=== PATIENT | female | born 1990 | race Caucasian/White ===

== ENCOUNTER 2017-10-14 04:52 | Observation (INO) | payer MEDICAID ==
[2017-10-14] MEDS ORDERED: ONDANSETRON 4 MG/2 ML VIAL IVP ONE (05:34)
[2017-10-14] MEDS ORDERED: D5W LR 500 ML IV ONE (05:45)
[2017-10-14 06:28] LABS: PLATELET COUNT 116 10^3/uL (150-400)
[2017-10-14] MEDS ORDERED: LR 1,000 ML IV ONE (06:30)
--- NOTE | 2017-10-14 13:43 | GHP ---
[f rep st] HISTORY AND PHYSICAL DATE OF ADMISSION: 10/14/2017 ADMITTING DIAGNOSES: 1. Intrauterine at 31 weeks and 6 days. 2. Nausea and vomiting in . HISTORY OF PRESENT ILLNESS: Patient is a 27-year-old 1, para 0, at 31 and 6 weeks with estimated due date 12/10/2017, by LMP 03/05/2017, consistent with a 13-week ultrasound. The patient presented to Labor and Delivery early this morning with complaints of nausea, vomiting, and 1 episode of diarrhea. Patient states has the same symptoms, questions food poisoning. She is unable to keep any food down, and has vomited more than 5 times. Patient states some abdominal cramping, but denies any pain. States there is good movement. Denies any leakage of fluid or vaginal bleeding. Patient denies any fevers or chills. The patient has good care at [facility], and presented at 13 weeks. Patient is Rh negative and did receive RhoGAM 2016. Patient developed mild anemia of . On 20-week ultrasound, there was estimated weight at 12th percentile, and pt needs a follow-up growth at 32 weeks. OB HISTORY: Patient is nulliparous. GYNECOLOGIC HISTORY: Age of menarche 13. Cycles every 28 days for 3-5 days. LMP 03/05/2017. test 04/20/2017. Patient has a history of abnormal Pap smear in 2013. Repeat was normal. No colposcopy or treatment done. Patient has history of OCP use in 2011 to 2012. The patient denies any exposure to sexually transmitted diseases. HOME MEDICATIONS: [id number] vitamin, vitamin B6. ALLERGIES: No known drug allergies. PAST MEDICAL HISTORY: History of cystitis, migraine headaches with aura. SURGICAL HISTORY: Fractured left wrist. FAMILY HISTORY: Unremarkable. SOCIAL HISTORY: Patient is not . She works for a private business. She lives with her partner. She denies any alcohol, tobacco, or illicit drug use. REVIEW OF SYSTEMS: 10-point review of systems negative. Pertinent positives noted in HPI. LABS: A negative. Antibody negative. RPR nonreactive. Rubella immune. Hepatitis B surface antigen negative, HIV negative. Standard panel negative. Urine culture negative. Pap test with ASCUS, negative high-risk HPV. screen negative. Rh antibody negative. RhoGAM given 2016. PHYSICAL EXAMINATION: VITAL SIGNS: On admission, vital signs are stable. GENERAL: The patient is a well-nourished well-developed female, alert and oriented x3. Not feeling well secondary to nausea and vomiting. CARDIOVASCULAR : Regular rate and rhythm. LUNGS: Clear to auscultation bilaterally. ABDOMEN : Gravid, soft, nontender, nondistended. PELVIC: Deferred. EXTREMITIES: Normal to inspection, without calf tenderness or edema. NST- Cat I tracing with +accels, no decels, mod variability ASSESSMENT: Patient is a 27-year-old 1, para 0, at 31 and 6/7 weeks, who presents with nausea, vomiting in , likely gastroenteritis. PLAN: 1. Admit to Labor and Delivery for observation. 2. IV fluids. 3. Antiemetics as needed. 4. Patient has tolerated both breakfast and lunch, without vomiting. She states she is feeling better. Her last episode of diarrhea was last night at 10 :30 pm. Last episode of vomiting early this morning around 6 a.m. 5. Patient is stable for discharge. I recommend a bland diet, small frequent meals. Prescription given for Zofran 4 mg ODT. Stay well hydrated. 6. labor precautions given. Patient is to call our office and schedule OB appointment in 1 week. /[id number]/MODL MTDD
== END 2017-10-14 13:30 | disposition home or self-care (01) ==
LOC: FLD 04:52
PROVIDERS: ADMIT Obstetrics & Gynecology; ATTEND Obstetrics & Gynecology
DX: O21.9 Vomiting of pregnancy, unspecified (principal); Z3A.13 13 weeks gestation of pregnancy
CPT/HCPCS: 59025; G0378; J2405

== ENCOUNTER 2017-11-19 10:30 | Inpatient (IN) | payer MEDICAID ==
[2017-11-19] MEDS ORDERED: OXYTOCIN 20 UNIT in LR 1,000 ML IV PRN (12:02)
[2017-11-19] MEDS ORDERED: LR 1,000 ML IV PRN (12:02)
[2017-11-19] MEDS ORDERED: LR 500 ML IV PRN (12:02)
[2017-11-19] MEDS ORDERED: MISOPROSTOL 200 MCG TAB PR PRN (12:02)
[2017-11-19] MEDS ORDERED: OLIVE OIL 118 ML BTL MISC PRN (12:02)
[2017-11-19] MEDS ORDERED: TERBUTALINE SULFATE 1 MG/ML VIAL IV PRN (12:02)
[2017-11-19] MEDS ORDERED: EPSOM SALT 454 GM TP PRN (12:02)
--- NOTE | 2017-11-19 12:02 | PDGENHP ---
History and Physical History and Physical: HPI: Patient is a 27 yo with IUP@ 37wks by with that presents to L&D for IOL 2/2 IUGR (3rd%). She denies any contractions, LOF, VB. She reports +FM. She is nervous about induction, but understands the reason and agrees with POC. EDC: 12/10/17 which is based on LMP:03/05/17 which is known and consistent with Ultrasound at 13 weeks. Her is complicated by: h/o migraines, rh negative, IUGR (3rd%) dx'd Review of Systems: Constitutional: Denies any fever, chills, or fatigue HEENT: denies any visual changes, difficulty swallowing, hearing loss Cardiovascular: Denies any chest pain, palpitations, leg swelling Respiratory: denies any cough, wheezing, or shortness of breathe GI: Denies any nausea, vomiting, diarrhea, constipation : denies any dysuria, urgency, frequency, vaginal bleeding Musculoskeletal: denies any muscle or bone pain Skin: denies any rashes Neuro: denies any headache, seizures, lightheadedness, dizziness, or loss of consciousness Psychiatric: denies any depression, anxiety, or SI/HI thoughts HISTORY: Previous OB history: G1 Past medical history: migraines Past surgical history: none Medications: PNV Allergies (list reaction): NKDA LABS: Rh: Rh negative ABS: Neg Rubella: Immune HbsAg: NR HIV: NR VDRL: NR 1hr: 55 GC: Neg Chlamydia: Neg Pap: Normal GBS: negative BMI: (prepreg) 23 PHYSICAL EXAM: Constitutional: WN, A&Ox3 HEENT: normocephalic atraumatic, supple Heart: RRR, no murmur Chest: CTA-B Abdomen: Soft, nontender, gravid SVE: 1-2/50/-2 Extremities: trace edema, negative homans sign Neuro: grossly normal Psych: normal affect assessment: Reassuring FHTs, baseline 140+accels, no decels, moderate variability Contractions: toco: irregular Assessment: 1) [id number] with IUP@37-0 () 2) IOL 2/2 IUGR 3) IUGR 3rd % 4) GBS negative 5) Cat 1 FHR tracing 6) Rh Negative Plan: 1) Admit to L&D 2) gary balloon/pitocin 3) pain management PRN 4) anticipate
[2017-11-19] MEDS ORDERED: OXYTOCIN 30 UNIT in NS 500 ML IV SCH (12:15)
[2017-11-19 13:15] LABS: PLATELET COUNT 135 10^3/uL (150-400)
[2017-11-19] MEDS ORDERED: AMMONIA AROMATIC 1 EACH AMP IH ONE (17:08)
[2017-11-19] MEDS ORDERED: OLIVE OIL 118 ML BTL ONE (17:08)
[2017-11-19] MEDS ORDERED: LIDOCAINE 1% 300 MG/30 ML SDV ONE (17:08)
[2017-11-19] MEDS ORDERED: OXYTOCIN 10 UNIT/ML VIAL ONE (17:09)
--- NOTE | 2017-11-19 17:14 | OBPROG ---
Labor Progress Note Assessment/Plan: Assessment: [id number] with IUP@37-0 (L/13) IOL 2/2 IUGR IUGR 3rd% GBS Negative cat 1 FHR Tracing AROM- clear Plan: cont pitocin reassess 2hr/PRN pain management PRN anticipate 11/19/17 17:10 Subjective/Intrapartum Course: 11/19/17 17:12 Pt doing well, she reports having contractions. She is rating them 4/10. She declines pain medication at this time. FOB @ BS, supportive. Objective: 11/19/17 13:05 Patient ABO/Rh A NEGATIVE 11/19/17 13:05 - SVE Dilation (cm): 5 Effacement (%): 50 Station: -2 Membranes: AROM Amniotic Fluid Color: Clear - Contraction Pattern Assessment Current Contraction Pattern: Regular - FHR Assessment Browne FHR (bpm): 135 FHR Pattern Variability: Moderate FHR Category: 1 - Procedures Non-surgical Procedures: Amniotomy - AP Antepartum Course: 11/19/17 17:13 routine care with BWC, Rh Negative, h/o migraines - Physical Exam General Appearance: WD/WN, alert, no apparent distress Oxytocin Orders Assessment - Pre-Induction/Augmentation Assessment Presentation: Vertex Gestational Age: 37 week(s) and 0 day(s) Gestational Age Determined By: Ultrasound, Last Menstral Period Membrane Status: Intact - Heart Rate Pattern Browne FHR Category: 1 FHR Pattern Variability: Moderate FHR Accelerations: Present - Ayoub's Score Dilation: 1-2cm Effacement: 40-50 Station: -2 Cervix: Medium Cervix Position: Anterior Ayoub Score Total: 6 - Induction/Augmentation Consent Risks/Benefits of Procedure Reviewed/Pt Agrees to Proceed: Yes ICD10 Worksheet Patient Problems: Problems Problem Status Onset Encounter for induction of labor Acute IUGR (intrauterine growth restriction) affecting care of mother Acute Nausea/vomiting in Acute - ICD10 Problem Qualifiers (1) IUGR (intrauterine growth restriction) affecting care of mother (2) Encounter for induction of labor
--- NOTE | 2017-11-19 18:17 | OBPROG ---
Labor Progress Note Assessment/Plan: Assessment: [id number] with IUP@37-0 (L/13) IOL 2/2 IUGR IUGR 3rd% GBS Negative cat 1 FHR Tracing AROM- clear Plan: cont pitocin reassess 2hr/PRN pain management PRN anticipate 11/19/17 17:10 Subjective/Intrapartum Course: 11/19/17 17:12 Pt doing well, she reports having contractions. She is rating them 4/10. She declines pain medication at this time. FOB @ BS, supportive. Objective: 11/19/17 13:05 Patient ABO/Rh A NEGATIVE 11/19/17 13:05 - SVE Dilation (cm): 5 Effacement (%): 50 Station: -2 Membranes: AROM Amniotic Fluid Color: Clear - Contraction Pattern Assessment Current Contraction Pattern: Regular - Procedures Non-surgical Procedures: Amniotomy - AP Antepartum Course: 11/19/17 17:13 routine care with BWC, Rh Negative, h/o migraines Oxytocin Orders Assessment - Pre-Induction/Augmentation Assessment Presentation: Vertex Gestational Age: 37 week(s) and 0 day(s) ICD10 Worksheet Patient Problems: Problems Problem Status Onset Encounter for induction of labor Acute IUGR (intrauterine growth restriction) affecting care of mother Acute Nausea/vomiting in Acute - ICD10 Problem Qualifiers (1) IUGR (intrauterine growth restriction) affecting care of mother (2) Encounter for induction of labor
[2017-11-19] MEDS: IBUPROFEN 600 MG TAB PO PRN (20:36)
[2017-11-19] MEDS ORDERED: SIMETHICONE 80 MG TAB CHEW PO PRN (20:58)
[2017-11-19] MEDS ORDERED: HYDROCODONE/APAP 5/325 TAB PO PRN (20:58)
[2017-11-19] MEDS ORDERED: HYDROCORTISONE 0.5% CREAM TP PRN (20:58)
[2017-11-19] MEDS ORDERED: ACETAMINOPHEN 325 MG TAB PO PRN (20:58)
--- NOTE | 2017-11-19 21:09 | OBDEL ---
Info Type: Vaginal Presentation at Delivery: Vertex L&D Analgesia/Anesthesia Type: None GBS+: No Intrapartum Medications: Generic Name Dose Route Start Last Admin Trade Name Freq PRN Reason Stop Dose Admin Oxytocin 30 unit/ Sodium 503 mls @ 0 mls/hr 11/19/17 12:15 11/19/17 13:18 Chloride IV 05/18/18 12:14 503 mls CONT VIOLET Administration Protocol Per Protocol Ibuprofen 600 mg 11/19/17 12:02 11/19/17 20:36 Motrin PO 05/18/18 12:01 600 mg Q6HRS PRN Administration post , inflammation - Hospital Course Intrapartum: 11/19/17 17:12 Pt doing well, she reports having contractions. She is rating them 4/10. She declines pain medication at this time. FOB @ BS, supportive. Vaginal Delivery - Delivery Provider Delivery Physician/CNM: Jazmin Laguna - Labor and Delivery Onset of Contractions Date: 11/19/17 Onset of Contractions Time: 16:00 Onset of Contractions Type: Induced Rupture of Membranes Date: 11/19/17 Rupture of Membranes Time: 16:45 Rupture of Membranes Type: Artificial Amniotic Fluid Color: Clear Dilation Complete Date: 11/19/17 Dilation Complete Time: 19:35 Placenta Delivery Date: 11/19/17 Placenta Delivery Time: 19:57 Total Hours of Labor: 3 Non-surgical Procedures: Amniotomy Laceration: 2nd Degree, Other (Specify) (left labial) Repair: 3-0, Vicryl Vaginal Sponge Count Correct: Yes Vaginal Needle Count Correct: Yes Vaginal Sweep Performed: Yes EBL: 250 Delivery Events: None Delivery Comment: delivered on Cub, unmedicated; dad helped catch - Medications Labor Augmentation/Induction Methods Used: Pitocin, Bronson Bulb Labor Augmentation/Induction Indication: IUGR Data HANNAH: 12/10/17 Gestational Age: 37 week(s) and 0 day(s) Browne Delivery Date: 11/19/17 Delivery Time: 19:54 Sex of : Female Score (1 Min): 9 Score (5 Min): 9 ICD10 Worksheet Patient Problems: Problems Problem Status Onset Encounter for induction of labor Acute IUGR (intrauterine growth restriction) affecting care of mother Acute (spontaneous vaginal delivery) Acute Nausea/vomiting in Acute - ICD10 Problem Qualifiers (1) IUGR (intrauterine growth restriction) affecting care of mother (2) Encounter for induction of labor (3) (spontaneous vaginal delivery)
[2017-11-20] MEDS: IBUPROFEN 600 MG TAB PO PRN ×4 (02:56→21:47)
--- NOTE | 2017-11-20 17:58 | OBPP ---
Progress Note Assessment/Plan: Assessment: PPD 1 s/p , IUGR, 37 wks Plan: routine care 11/20/17 17:50 Subjective/ Course: 11/20/17 17:58 Pt doing well. Minimally sore - used ice earlier. Baby latched pretty well last noc - not much since. urinating fine. bld is light. Objective: 11/19/17 13:05 Patient ABO/Rh A NEGATIVE 11/19/17 22:10 Temp Pulse Resp BP Pulse Ox 36.6 C 80 18 105/65 96 11/20/17 08:00 11/20/17 08:00 11/20/17 08:00 11/20/17 08:00 11/20/17 08:00 Uterine Position/Fundal Height: Umbilicus -1 Uterine Tone: Firm Physical Exam - Physical Exam Abdomen: non-tender, soft, other (FF at umb -2) Extremities: non-tender, pedal edema (mild) Skin: normal color, warm/dry Neuro/Psych: alert, normal mood/affect
[2017-11-20 20:40] VITALS: RESP 16; O2SAT 97
[2017-11-20] MEDS: DOCUSATE SODIUM 100 MG CAP PO PRN (21:47)
[2017-11-21] MEDS: DOCUSATE SODIUM 100 MG CAP PO PRN (11:04)
[2017-11-21 11:36] VITALS: BP 114/75; PULSE 90; TEMP 98.5
--- NOTE | 2017-11-21 12:39 | OBGCSDC ---
General Delivery Information - General Info : 1 Para: 1 Abortions: 0 Type: Vaginal L&D Analgesia/Anesthesia Type: None Admission Date: 11/19/17 Labs: Patient ABO/Rh A NEGATIVE 11/19/17 22:10 Hct 37.5 % (38.0-47.0) L 11/19/17 13:05 - Hospital Course Antepartum: 11/19/17 17:13 routine care with BWC, Rh Negative, h/o migraines Intrapartum: 11/19/17 17:12 Pt doing well, she reports having contractions. She is rating them 4/10. She declines pain medication at this time. FOB @ BS, supportive. : 11/20/17 17:58 Pt doing well. Minimally sore - used ice earlier. Baby latched pretty well last noc - not much since. urinating fine. bld is light. 11/21/17 12:44 S) Pt doing well, reports min pain and bleeding. she is ambulating and voiding without difficulty. She is and pumping. FOB a BS and supportive. She desires discharge home today. O) VSS, afebrile constitutional: WNWF, A&Ox3 HEENT: normocephalic, atraumatic, supple Heart: RRR, No murmur Chest: CTA-B Abdomen: Soft, nontender Uterus: Firm at U-2 Lochia: Minimal rubra Perineum: Intact, healing well Extremities: Trace edema, and negative Jennifer's sign Neuro: Grossly normal A) 27-year-old S/P PPD#2 P) Discharge home today Continue , rx breast pump given to pt Pelvic rest x6wks Discussed danger signs (infection, preeclampsia, depression, heavy bleeding, etc ) RTO in 4/6 weeks Vaginal - Delivery Provider Delivery Physician/CNM: Jazmin Laguna - Diagnosis Labor: Induced Rupture of Membranes Type: Artificial Amniotic Fluid Color: Clear Laceration: 2nd Degree, Other (Specify) (left labial) Repair: 3-0, Vicryl Delivery Events: None - Procedures Non-surgical Procedures: Amniotomy - Delivery Non-surgical Procedures: Amniotomy EBL: 250 [place] Data HANNAH: 12/10/17 Gestational Age: 37 week(s) and 2 day(s) Browne Delivery Date: 11/19/17 Delivery Time: 19:54 Sex of : Female Score (1 Min): 9 Score (5 Min): 9 Discharge Information - Discharge Information Condition: Good Instruction/Follow Up: Four Weeks, Six Weeks
[2017-11-21] MEDS: IBUPROFEN 600 MG TAB PO PRN (13:23)
== END 2017-11-21 15:00 | disposition home or self-care (01) | DRG 775 ==
LOC: FLD 10:30 → FOB 22:15
PROVIDERS: ADMIT Advanced Practice Midwife; ATTEND Advanced Practice Midwife
PROC: 0KQM0ZZ Repair Perineum Muscle, Open Approach (ICD-10-PCS; principal; 2017-11-19)
PROC: 3E033VJ Introduction of Other Hormone into Peripheral Vein, Percutaneous Approach (ICD-10-PCS; principal; 2017-11-19)
PROC: 10907ZC Drainage of Amniotic Fluid, Therapeutic from Products of Conception, Via Natural or Artificial Opening (ICD-10-PCS; principal; 2017-11-19)
PROC: 10E0XZZ Delivery of Products of Conception, External Approach (ICD-10-PCS; principal; 2017-11-19)
DX: O36.5930 Maternal care for other known or suspected poor fetal growth, third trimester, not applicable or unspecified (principal); Z37.0 Single live birth; Z3A.37 37 weeks gestation of pregnancy; O70.1 Second degree perineal laceration during delivery
CPT/HCPCS: J2590